=== PATIENT | male | born 1980 | race Two or more races ===

== ENCOUNTER 2021-06-01 19:11 | Emergency (ER) | payer SELFPAY ==
--- NOTE | 2021-06-01 20:29 | NUR ---
Pt not in waiting room.
== END 2021-06-01 20:30 | disposition left against medical advice (07) ==
LOC: ER 19:14
DX: Z53.21 Procedure and treatment not carried out due to patient leaving prior to being seen by health care provider (principal)
CPT/HCPCS: A4663